=== PATIENT | female | born 1960 | race Hispanic/Latino ===

== ENCOUNTER 2018-01-12 22:50 | Emergency (ER) | payer OTHER ==
[2018-01-13] MEDS ORDERED: NA CHLORIDE 0.9% 1,000 ML ONE (00:19)
[2018-01-13 00:21] LABS: Urine Blood 2+ (NEG); Urine Glucose NEGATIVE (NEG); Urine Protein NEGATIVE (NEG)
[2018-01-13] MEDS ORDERED: KETOROLAC 30 MG/ML INJ ONE (00:22)
[2018-01-13 00:26] LABS: Urine Bacteria <20 /HPF (<20)
[2018-01-13 00:27] LABS: Urine Culture Reflex Order NOT NEEDED
[2018-01-13 00:28] LABS: Absolute Lymphocytes (CBC) 3.2 K/uL (0.7-4.9); Absolute Monocytes 0.7 K/uL (0.1-1.3); Basophils % 0.8 % (0-1.3); Eosinophils % 2.1 % (0-4.4); Lymphocytes % 31.1 % (15.3-44.8); MCH 27.7 pg (27.0-35.0); MCV 83.9 fL (80-100); MPV 9.4 fL (7.6-11.3); RBC Red Blood Cell Count 4.77 M/uL (3.86-4.86)
[2018-01-13 00:36] LABS: Bicarbonate 28 mEq/L (21-31); Glucose Level 111 mg/dL (65-120); Lipase 17 U/L (22-51); Potassium 3.5 mEq/L (3.6-5.0); Sodium Level 137 mEq/L (135-145)
[2018-01-13 00:42] LABS: ALT/SGPT 17 IU/L (10-60); AST/SGOT 21 IU/L (10-42); Albumin 4.4 g/dL (3.2-5.5); Alkaline Phosphatase 78 IU/L (42-121); Amylase Level 53 U/L (28-100); BUN Blood Urea Nitrogen 10 mg/dL (6-20); Bilirubin Direct < 0.1 mg/dL (0-0.2); Bilirubin Total 0.6 mg/dL (0.3-1.2); Protein, Total 8.6 g/dL (6.0-8.3)
--- NOTE | 2018-01-13 01:31 | ER ---
Nurse's Notes [facility] Name: Ara Philippe Age: 57 yrs Sex: Female : 1960 Arrival Date: 01/12/2018 Time: 22:54 Bed 7 Private MD: Diagnosis: Calculus of kidney and ureter Presentation: 01/12 23:19 Presenting complaint: Patient states: (FROM [facility]) I HAVE PAIN IN MY LEFT SIDE, bp IN THE KIDNEY. Transition of care: patient was not received from another setting of care. Onset of symptoms was January 12, 2018 at 22:00. Care prior to arrival: None. 23:19 Method Of Arrival: Ambulatory bp 23:19 Acuity: ZOYA 3 bp Historical: - Allergies: 23:20 Codeine; bp - Home Meds: 23:20 Unable to obtain [Active]; bp - PMHx: 23:20 High Cholesterol; Hypertension; bp - Immunization history:: Adult Immunizations up to date. - Social history:: Smoking status: Patient/guardian denies using tobacco. Screenin:49 Abuse screen: Denies threats or abuse. Denies injuries from another. Nutritional aa1 screening: No deficits noted. Tuberculosis screening: No symptoms or risk factors identified. Fall Risk None identified. Assessment: 23:49 General: Appears in no apparent distress. comfortable, Behavior is calm, cooperative, aa1 appropriate for age. Pain: Complains of pain in posterior aspect of left lateral abdomen Pain began 1 hour ago. Is continuous. Neuro: Level of Consciousness is awake, alert, obeys commands, Oriented to person, place, time, situation, Appropriate for age Moves all extremities. Full function Gait is steady. Respiratory: Airway is patent Respiratory effort is even, unlabored, Respiratory pattern is regular, symmetrical. GI: No signs and/or symptoms were reported involving the gastrointestinal system. : Reports pain in left flank(s). EENT: No signs and/or symptoms were reported regarding the EENT system. Derm: Skin is intact, is healthy with good turgor, Skin is pink, warm \T\ dry. Musculoskeletal: Circulation, motion, and sensation intact. Capillary refill < 3 seconds, Range of motion: intact in all extremities. Vital Signs: 23:20 BP 158 / 72; Pulse 71; Resp 20; Temp 97.8; Pulse Ox 100% ; Weight 56.7 kg; bp 01/13 00:30 BP 155 / 85; Pulse 66; Resp 18; Pulse Ox 97% on R/A; aa1 01:20 BP 137 / 59; Pulse 67; Resp 18; Pulse Ox 98% on R/A; aa1 ED Course: 01/12 22:54 Patient arrived in ED. es 23:19 Triage completed. bp 23:20 Arm band placed on. bp 23:40 Barber Hui MD is Attending Physician. tw4 23:40 Angela Cole, RN is Primary Nurse. aa1 23:49 Patient has correct armband on for positive identification. Placed in gown. Bed in low aa1 position. Call light in reach. Pulse ox on. NIBP on. 01/13 00:10 Initial lab(s) drawn, by me, sent to lab. Urine collected: clean catch specimen, clear. aa1 Inserted saline lock: 20 gauge in right antecubital area, using aseptic technique. Blood collected. 00:32 CT Abd/Pelvis - Without Cont In Process Unspecified. EDMS 02:00 No provider procedures requiring assistance completed. IV discontinued, intact, aa1 bleeding controlled, No redness/swelling at site. Pressure dressing applied. Administered Medications: 00:10 Drug: NS 0.9% 1000 ml Route: IV; Rate: 1 bolus; Site: right antecubital; aa1 01:57 Follow up: IV Status: Completed infusion aa1 00:10 Drug: TORadol 30 mg Route: IVP; Site: right antecubital; aa1 01:57 Follow up: Response: No adverse reaction; Pain is decreased aa1 Outcome: 01:30 Discharge ordered by . tw4 02:00 Discharged to home ambulatory, with family. aa1 02:00 Condition: good 02:00 Discharge instructions given to patient, family, Instructed on discharge instructions, follow up and referral plans. medication usage, Demonstrated understanding of instructions, follow-up care, medications, Prescriptions given X 1. 02:00 Patient left the ED. aa1 Signatures: Dispatcher [employer] EDAngela Maki, RN RN aa1 Criss Gaston Brian RN RN Barber Gonzalez MD MD tw4
--- NOTE | 2018-01-13 01:31 | EDPHYS ---
Physician Documentation [facility] Name: Ara Philippe Age: 57 yrs Sex: Female : 1960 Arrival Date: 01/12/2018 Time: 22:54 Bed 7 Private MD: ED Physician Barber Hui Historical: - Allergies: 01/12 23:20 Codeine; bp - Home Meds: 23:20 Unable to obtain [Active]; bp - PMHx: 23:20 High Cholesterol; Hypertension; bp - Immunization history:: Adult Immunizations up to date. - Social history:: Smoking status: Patient/guardian denies using tobacco. Vital Signs: 23:20 BP 158 / 72; Pulse 71; Resp 20; Temp 97.8; Pulse Ox 100% ; Weight 56.7 kg; bp 01/13 00:30 BP 155 / 85; Pulse 66; Resp 18; Pulse Ox 97% on R/A; aa1 01:20 BP 137 / 59; Pulse 67; Resp 18; Pulse Ox 98% on R/A; aa1 MDM: 01/12 23:40 Patient medically screened. 01/12 23:53 Order name: Amylase, Serum; Complete Time: 01:01/12 23:53 Order name: Basic Metabolic Panel; Complete Time: :01/12 23:53 Order name: CBC with Diff; Complete Time: :01/12 23:53 Order name: Creatinine for Radiology; Complete Time: :01/12 23:53 Order name: Hepatic Function; Complete Time: :01/12 23:53 Order name: Lipase; Complete Time: :01/12 23:53 Order name: Urine Microscopic Only; Complete Time: 01:01/12 23:53 Order name: IV Saline Lock; Complete Time: 00:19 01/12 23:53 Order name: Labs collected and sent; Complete Time: 00:19 01/12 23:53 Order name: Urine Dipstick-Ancillary (obtain specimen); Complete Time: 00:11 01/13 00:07 Order name: CT Abd/Pelvis - Without Cont; Complete Time: 16:43 01/13 00:13 Order name: Urine Dipstick--Ancillary (enter results); Complete Time: 01:29 mt Administered Medications: 01/13 00:10 Drug: NS 0.9% 1000 ml Route: IV; Rate: 1 bolus; Site: right antecubital; aa1 01:57 Follow up: IV Status: Completed infusion aa1 00:10 Drug: TORadol 30 mg Route: IVP; Site: right antecubital; aa1 01:57 Follow up: Response: No adverse reaction; Pain is decreased aa1 Disposition: 01/13/18 01:30 Discharged to Home. Impression: Calculus of kidney and ureter. - Condition is Stable. - Discharge Instructions: Kidney Stones, [id number]. - Prescriptions for Tramadol 50 mg Oral Tablet - take 1 tablet by ORAL route every 8 hours as needed; 12 tablet. - Medication Reconciliation Form, Thank You Letter, Antibiotic Education, Presription Opioid Use form. - Follow up: Private Physician; When: As needed; Reason: If symptoms return, Recheck today's complaints, Continuance of care, Re-evaluation by your physician. - Problem is new. - Symptoms have improved. Addendum: 02/03/2018 17:02 Addendum: Pt is a 57 year female that presents with left sided back pain for one day. t w4 Pt denies injury, urinary symptoms. she has no nausea or vomiting. There are no alleviating or aggravating factors. 17:03 Addendum: ROS: Gen: denies fever, chills malaise ENT: denies neck pain, sore throat t w4 Chest: denies chest pain, palpitations, Resp: denies SOB, cough Abdomen: denies abdominal pain, nausea vomiting Back: denies injury, positive for pain. 17:08 Addendum: Physical Exam: General: well develop well nourished female in NAD t w4 HEENT:PERRLA, EOMI CV: RRR, nl S1, S2 Resp: CTAB nl BS Abdomen: ND/NT Back: right CVA tenderness, no vertebral tenderness Ext; nontender, no edema. 17:10 Addendum: CT scan reveals non obstructing stone in right kidney. t w4 Signatures: Dispatcher [employer] EDMS Angela Cole RN RN aa1 Carlos Garrett RN RN bp Korina, Barber, MD MD tw4
--- NOTE | 2018-01-13 09:04 | RAD REPORT ---
EXAM DESCRIPTION: CT - Abdomen Pelvis Wo Contrast - 01/13/2018 6:03 am CLINICAL HISTORY: Left-sided abdomen and flank pain, history of kidney stones. A preliminary written report was provided at the time of the study, and the report was reviewed prio r to final dictation. COMPARISON: None. TECHNIQUE: Axial [address] imaging of the abdomen and pelvis was performed without IV contrast. No IV contrast was given because of allergy, abnormal renal function, patient refusal or physician re quest. Oral contrast was given. All CT scans are performed using dose optimization technique as appropriate and may include automated exposure control or mA/KV adjustment according to patient size. FINDINGS: No suspicious findings in the lung bases. The liver, spleen and pancreas show no suspicious findings on non-contrast imaging. Gallbladder is ab sent. No biliary tree dilatation. No hydronephrosis or suspicious renal mass. A punctate 2 mm nonobstructing calculus noted in the mid right renal calyx. No significant adrenal finding. Isodense renal masses and pyelonephritis cannot be excluded in the absence of IV contrast. No calculus or gross evidence for mass in the contracted uri nary bladder. Bladder assessment is limited. Pelvic floor phleboliths are present. Uterus is absent. Ovaries are absent or atrophic. No suspicion for an ovarian or paraovarian mass. No dilated bowel loops or bowel wall thickening. No free air, free fluid or inflammatory stranding. N o hernia, mass or bulky lymphadenopathy. Mild left-sided diverticulosis is present. Disc and bony degenerative changes are present. Degenerative changes are prominent the lumbosacral ju nction. IMPRESSION: Noncontrast CT abdomen and pelvis imaging shows no significant or suspicious finding. Punctate nonobstructing calculus right mid kidney. Full assessment is limited is the absence of IV contrast.
== END 2018-01-13 02:00 | disposition home or self-care (01) ==
LOC: ER 22:50
DX: N20.2 Calculus of kidney with calculus of ureter (principal); I10 Essential (primary) hypertension; Z88.5 Allergy status to narcotic agent
CPT/HCPCS: 36415; 74176; 80048; 80076; 81003; 81015; 82150; 83690; 85025; 96361; 96374; 99284; J7030

== ENCOUNTER 2020-03-06 11:27 | Emergency (ER) | payer OTHER ==
--- NOTE | 2020-03-06 13:29 | EDPHYS ---
Physician Documentation [facility] Name: Ara Philippe Age: 59 yrs Sex: Female : 1960 Arrival Date: 03/06/2020 Time: 11:31 Bed 13 Private MD: ED Physician Ayden Vega HPI: 03/06 12:22 This 59 yrs old Female presents to ER via Ambulatory with complaints of Hand cp Injury. 12:22 The patient or guardian complains of injury, pain, that is acute. The complaints affect cp the right hand and right arm. Context: resulted from a fall. 12:22 Onset: The symptoms/episode began/occurred today. cp 12:22 Associated signs and symptoms: Pertinent positives: pain, swelling, Pertinent cp negatives: decreased range of motion, deformity, numbness, tingling. Historical: - Allergies: 12:10 Codeine; aa5 - PMHx: 12:10 High Cholesterol; Hypertension; aa5 - PSHx: 12:10 total hysterectomy; Cholecystectomy; aa5 - Immunization history:: Adult Immunizations unknown. - Social history:: Smoking status: Patient denies any tobacco usage or history of. ROS: 12:30 Constitutional: Negative for body aches, chills, fever, poor PO intake. cp 12:30 Eyes: Negative for injury, pain, redness, and discharge. cp 12:30 ENT: Negative for drainage from ear(s), ear pain, sore throat, difficulty swallowing, difficulty handling secretions. 12:30 Cardiovascular: Negative for chest pain, palpitations. 12:30 Respiratory: Negative for cough, shortness of breath, wheezing. 12:30 Abdomen/GI: Negative for abdominal pain, nausea, vomiting, and diarrhea. 12:30 Back: Negative for pain at rest, pain with movement. 12:30 MS/extremity: Positive for injury or acute deformity, pain, swelling, tenderness, of the right hand and right arm, Negative for decreased range of motion, deformity, paresthesias. 12:30 Neuro: Negative for altered mental status, loss of consciousness, syncope, weakness. 12:30 All other systems are negative. Exam: 12:35 Constitutional: The patient appears in no acute distress, alert, awake, cp non-diaphoretic, non-toxic, well developed, well nourished. 12:35 Head/Face: Normocephalic, atraumatic. cp 12:35 Neck: C-spine: vertebral tenderness, is not appreciated, crepitus, is not appreciated, cp ROM/movement: pain, is not appreciated, limited range of motion, is not appreciated. 12:35 Chest/axilla: Inspection: normal, Palpation: is normal, no crepitus, no tenderness. 12:35 Cardiovascular: Rate: normal. 12:35 Respiratory: the patient does not display signs of respiratory distress, Respirations: normal, no use of accessory muscles, labored breathing, is not present. 12:35 Musculoskeletal/extremity: Extremities: grossly normal except: noted in the right hand: pain, swelling, tenderness, noted in the right forearm: pain, tenderness, no evidence of deformity, Perfusion: the extremity is normally perfused throughout, Sensation intact. Joints: All joints are normal except the right shoulder displays painful range of motion, tenderness, the right wrist displays painful range of motion, swelling, tenderness. 12:35 Skin: no rash present. intact. cp Vital Signs: 12:07 BP 158 / 60; Pulse 62; Resp 18 S; Temp 98.3(O); Pulse Ox 100% on R/A; Weight 58.97 kg aa5 (R); Height 4 ft. 11 in. (149.86 cm) (R); Pain 7/10; 12:07 Body Mass Index 26.26 (58.97 kg, 149.86 cm) aa5 MDM: 12:14 Patient medically screened. cp 12:30 Differential diagnosis: dislocation, closed fracture, contusion. cp 13:17 Test interpretation: by ED physician or midlevel provider: xrays of right hand negative cp for fracture, xrays of right forearm negative for fracture and xrays of right humerus negative for fracture. 13:28 Data reviewed: vital signs, nurses notes, radiologic studies, plain films. cp 13:28 Counseling: I had a detailed discussion with the patient and/or guardian regarding: the cp historical points, exam findings, and any diagnostic results supporting the discharge/admit diagnosis, radiology results, to return to the emergency department if symptoms worsen or persist or if there are any questions or concerns that arise at home. 03/06 12:22 Order name: XRAY Humerus RIGHT cp 03/06 12:22 Order name: XRAY Hand RIGHT 3 View cp 03/06 12:22 Order name: XRAY Forearm RIGHT cp 03/06 13:17 Order name: Sling; Complete Time: 13:44 cp Administered Medications: No medications were administered Disposition: 15:06 Co-signature as Attending Physician, Ayden Vega MD. rn Disposition: 03/06/20 13:29 Discharged to Home. Impression: Pain in right arm - from fall, Pain in right hand - from fall. - Condition is Stable. - Discharge Instructions: Musculoskeletal Pain, Hand Exercises, Hand Pain. - Prescriptions for Ibuprofen 800 mg Oral Tablet - take 1 tablet by ORAL route every 8 hours As needed take with food; 30 tablet. - Work release form, Medication Reconciliation Form, Thank You Letter, Antibiotic Education, Prescription Opioid Use form. - Follow up: Reece Giordano MD; When: 2 - 3 days; Reason: Recheck today's complaints. - Problem is new. - Symptoms have improved. Signatures: Dispatcher [employer] EDAyden Lynn MD MD rn Calderon, Audri, RN RN aa5 Margarito Conrad PA PA cp Corrections: (The following items were deleted from the chart) 13:56 13:29 03/06/2020 13:29 Discharged to Home. Impression: Pain in right arm - from fall; aa5 Pain in right hand - from fall. Condition is Stable. Forms are Medication Reconciliation Form, Thank You Letter, Antibiotic Education, Prescription Opioid Use. Follow up: Reece Giordano; When: 2 - 3 days; Reason: Recheck today's complaints. Problem is new. Symptoms have improved. cp
--- NOTE | 2020-03-06 13:29 | ER ---
Nurse's Notes [facility] Name: Ara Philippe Age: 59 yrs Sex: Female : 1960 Arrival Date: 03/06/2020 Time: 11:31 Bed 13 Private MD: Diagnosis: Pain in right arm-from fall;Pain in right hand-from fall Presentation: 03/06 12:07 Chief complaint: Patient states: "I tripped and fell onto my stomach but I put my right aa5 arm out to catch myself and I hurt it". pt c/o pain to right arm from elbow down to her fingers. Coronavirus screen: Proceed with normal triage. Patient denies a cough. Patient denies shortness of breath or difficulty breathing. Patient denies measured and/or subjective temperature greater than 100.4F prior to today's visit. Patient denies travel on a cruise ship or to a country the [facility] currently lists as an affected area. Patient denies contact with known and/or suspected case of COVID-19. Ebola Screen: Patient negative for fever greater than or equal to 101.5 degrees Fahrenheit, and additional compatible Ebola Virus Disease symptoms. Initial Sepsis Screen: Does the patient meet any 2 criteria? No. Patient's initial sepsis screen is negative. Does the patient have a suspected source of infection? No. Patient's initial sepsis screen is negative. Risk Assessment: Do you want to hurt yourself or someone else? Patient reports no desire to harm self or others. Onset of symptoms was March 06, 2020. 12:07 Acuity: ZOYA 4 aa5 12:07 Method Of Arrival: Ambulatory aa5 Historical: - Allergies: 12:10 Codeine; aa5 - PMHx: 12:10 High Cholesterol; Hypertension; aa5 - PSHx: 12:10 total hysterectomy; Cholecystectomy; aa5 - Immunization history:: Adult Immunizations unknown. - Social history:: Smoking status: Patient denies any tobacco usage or history of. Screenin:10 Abuse screen: Denies threats or abuse. Nutritional screening: No deficits noted. aa5 Tuberculosis screening: No symptoms or risk factors identified. Fall Risk None identified. Assessment: 12:10 General: Appears comfortable, Behavior is calm, cooperative. Pain: Complains of pain in aa5 right arm Pain does not radiate. Pain currently is 7 out of 10 on a pain scale. Quality of pain is described as aching, Is continuous, Aggravated by increased activity. Neuro: Level of Consciousness is awake, alert, obeys commands, Oriented to person, place, time, situation. Cardiovascular: Patient's skin is warm and dry. Respiratory: Airway is patent Respiratory effort is even, unlabored, Respiratory pattern is regular, symmetrical. GI: No signs and/or symptoms were reported involving the gastrointestinal system. : No signs and/or symptoms were reported regarding the genitourinary system. EENT: No signs and/or symptoms were reported regarding the EENT system. Derm: Skin is pink, warm \\T\\ dry. Musculoskeletal: Reports pain in right arm. 13:45 Reassessment: Patient is alert, oriented x 3, equal unlabored respirations, skin aa5 warm/dry/pink. Vital Signs: 12:07 BP 158 / 60; Pulse 62; Resp 18 S; Temp 98.3(O); Pulse Ox 100% on R/A; Weight 58.97 kg aa5 (R); Height 4 ft. 11 in. (149.86 cm) (R); Pain 7/10; 12:07 Body Mass Index 26.26 (58.97 kg, 149.86 cm) aa5 ED Course: 11:31 Patient arrived in ED. as 11:40 Margarito Conrad PA is PHCP. cp 11:40 Ayden Vega MD is Attending Physician. cp 12:07 Arm band placed on Patient placed in an exam room, on a stretcher. aa5 12:07 Patient has correct armband on for positive identification. Bed in low position. Call aa5 light in reach. Side rails up X 1. 12:09 Triage completed. aa5 12:10 Yesenia Zamarripa, AMIE is Primary Nurse. aa5 12:59 Report given to AMIE Hamilton. aa5 13:03 XRAY Humerus RIGHT In Process Unspecified. EDMS 13:03 XRAY Hand RIGHT 3 View In Process Unspecified. EDMS 13:03 XRAY Forearm RIGHT In Process Unspecified. EDMS 13:28 Reece Giordano MD is Referral Physician. cp 13:44 Sling applied to right arm. lt1 13:45 No provider procedures requiring assistance completed. Patient did not have IV access aa5 during this emergency room visit. Administered Medications: No medications were administered Outcome: 13:29 Discharge ordered by MD. rosa 13:45 Discharged to home ambulatory. aa5 13:45 Condition: stable 13:45 Discharge instructions given to patient, Instructed on discharge instructions, follow up and referral plans. Demonstrated understanding of instructions, follow-up care. 13:50 Patient left the ED. aa5 Signatures: Dispatcher [employer] EDLala Rodriguez Audri, RN RN aa5 Margarito Conrad PA PA cp Tran, Leah lt1 Corrections: (The following items were deleted from the chart) 14:01 13:56 Patient left the ED. aa5 aa5
--- NOTE | 2020-03-06 13:36 | RAD REPORT ---
EXAM DESCRIPTION: RAD - Humerus Right - 03/06/2020 1:03 pm CLINICAL HISTORY: fall;Pain Fall, pain COMPARISON: None FINDINGS: Right humerus, forearm and hand- multiple projections are submitted Diffuse osteopenia is seen. No acute fracture or dislocation seen.
[2020-03-06 14:06] VITALS: BP 115/69; TEMP 98.1; O2SAT 99
--- NOTE | 2020-03-09 09:42 | RAD REPORT ---
EXAM DESCRIPTION: RAD - Hand Right 3 View - 03/06/2020 1:03 pm CLINICAL HISTORY: Fall;Pain Fall, pain COMPARISON: None FINDINGS: Right humerus, forearm and hand- multiple projections are submitted Diffuse osteopenia is seen. No acute fracture or dislocation seen.
== END 2020-03-06 13:56 | disposition home or self-care (01) ==
LOC: ER 11:27
DX: M79.641 Pain in right hand (principal); W19.XXXA Unspecified fall, initial encounter; Y93.9 Activity, unspecified; Y92.9 Unspecified place or not applicable; I10 Essential (primary) hypertension; Z88.5 Allergy status to narcotic agent
CPT/HCPCS: 99283